=== PATIENT | female | born 1980 | race Caucasian/White ===

== ENCOUNTER → 2022-07-29 | Outpatient (CLI) | payer BC | LOC: MC.RAD 09:50 | DX: Z12.31 Encounter for screening mammogram for malignant neoplasm of breast (principal) ==

== ENCOUNTER 2024-08-27 17:56 | Emergency (ER) | payer BC ==
[~2024-08-27] VITALS: Ht 167.6 cm; Wt 99.1 kg
[~2024-08-27 17:56] MED LIST: EXCEDRIN1 TAB PO; FLEXERIL 1010 MG/TAB PO; NECON 0.5/35 351 TAB PO
[2024-08-27 17:59] VITALS: TEMP 97.8
[2024-08-27] MEDS ORDERED: Ondansetron 4 MG/2 ML VIAL IV ONE (18:15)
[2024-08-27] MEDS ORDERED: Morphine 4 MG/ML VIAL IV ONE (18:15)
[2024-08-27] MEDS ORDERED: NS 50 ML IV SCH (18:59)
[2024-08-27] MEDS ORDERED: Iohexol 300 - 100 ML VIAL IV ONE (18:59)
[2024-08-27] MEDS ORDERED: NORCO 325 MG-51 TAB PO (20:53)
[2024-08-27] MEDS ORDERED: ZOFRAN 4MG T4 MG/TAB PO (21:07)
[2024-08-27] MEDS ORDERED: Home HYDROcodone/Acetaminophen 5/325 MG #4 TABS/PACK PO ONE (21:15)
[2024-08-27 21:38] VITALS: BP 124/75; PULSE 76
== END 2024-08-27 21:38 | disposition home or self-care (01) ==
LOC: COL.ER 17:56
DX: S09.90XA Unspecified injury of head, initial encounter (principal); S32.018A Other fracture of first lumbar vertebra, initial encounter for closed fracture; S32.028A Other fracture of second lumbar vertebra, initial encounter for closed fracture; S32.038A Other fracture of third lumbar vertebra, initial encounter for closed fracture; S32.048A Other fracture of fourth lumbar vertebra, initial encounter for closed fracture; R11.2 Nausea with vomiting, unspecified; V80.010A Animal-rider injured by fall from or being thrown from horse in noncollision accident, initial encounter; Y93.52 Activity, horseback riding
CPT/HCPCS: J2270; J2405; Q9967